=== PATIENT | male | born 1985 | race Asian ===

== ENCOUNTER 2019-01-28 13:29 | Emergency (ER) | payer MEDICAID ==
[~2019-01-28] VITALS: Ht 167.6 cm; Wt 89.1 kg
[~2019-01-28 13:29] MED LIST: DIPH25CA83 PO; HYDR1TAB PO; NO HOME MEDS; PANT-47 PO; POLY119P2 PO
[2019-01-28 13:40] VITALS: BP 149/98
[2019-01-28] MEDS ORDERED: ORPH100T2 PO (14:14)
[2019-01-28] MEDS ORDERED: orphenadrine citrate 60mg/2ml inj. IM ONE (14:15)
== END 2019-01-28 15:00 | disposition home or self-care (01) ==
LOC: ER 13:29
DX: M54.2 Cervicalgia (principal); M25.511 Pain in right shoulder; M25.512 Pain in left shoulder; F17.200 Nicotine dependence, unspecified, uncomplicated; Z90.49 Acquired absence of other specified parts of digestive tract; Z98.890 Other specified postprocedural states; Z56.0 Unemployment, unspecified; Z79.899 Other long term (current) drug therapy
CPT/HCPCS: 96372; 99283; J2360

== ENCOUNTER 2021-04-22 02:06 | Emergency (ER) | payer MEDICAID ==
[~2021-04-22] VITALS: Ht 167.6 cm; Wt 92.0 kg
[~2021-04-22 02:06] MED LIST changes: +ORPH100T2 PO
[2021-04-22] MEDS ORDERED: normal saline 1000ml 1,000 ML IV ONE (02:15)
[2021-04-22] MEDS ORDERED: pantoprazole 40 MG vial IV ONE (02:50)
[2021-04-22] MEDS ORDERED: LIDOcaine Viscous 15ml cup MM ONE (02:50)
[2021-04-22] MEDS ORDERED: mag hydrox/Alum hydrox/simeth 30ml oral suspension PO ONE (02:50)
[2021-04-22] MEDS ORDERED: famotidine/PF 10 mg/ml inj IV ONE ×2 (02:50→03:35)
[2021-04-22 02:53] LABS: BASOPHILS % (AUTO) 0.5 % (0-1); EOSINOPHILS # (AUTO) 0.3 X10'3 (0-0.9); EOSINOPHILS % (AUTO) 4.1 % (0-6); HEMATOCRIT 50.2 % (42.0-52.0); HEMOGLOBIN 17.4 g/dl (14.0-17.9); LYMPHOCYTES # (AUTO) 2.3 X10'3 (1.1-4.8); LYMPHOCYTES % (AUTO) 30.4 % (21-51); MEAN CORPUSCULAR HEMOGLOBIN 33.2 PG (27.0-31.0); MEAN CORPUSCULAR HGB CONC 34.6 g/dL (33.0-36.5); MEAN PLATELET VOLUME 8.7 FL (7.4-10.4); MONOCYTES # (AUTO) 0.8 X10'3 (0-0.9); MONOCYTES % (AUTO) 11.1 % (2-12); NEUTROPHILS # (AUTO) 4.1 X10'3 (1.8-7.7); NEUTROPHILS % (AUTO) 53.9 % (42-75); PLATELET COUNT 193 X10'3 (140-440); RED BLOOD COUNT 5.23 X10'6 (4.70-6.10); RED CELL DISTRIBUTION WIDTH 13.4 % (11.5-14.5); WHITE BLOOD COUNT 7.5 X10'3 (4.5-11.0)
[2021-04-22 03:07] LABS: ALANINE AMINOTRANSFERASE 44 U/L (12-78); ALBUMIN 3.6 G/DL (3.4-5.0); ALBUMIN/GLOBULIN RATIO 0.9 (1.1-1.5); ALKALINE PHOSPHATASE 90 IU/L (46-116); ANION GAP 13 (8-16); ASPARTATE AMINO TRANSFERASE 16 U/L (10-37); BILIRUBIN,TOTAL 0.4 MG/DL (0.1-1.0); BLOOD UREA NITROGEN 15 MG/DL (7-18); BUN/CREATININE RATIO 15.6 (5.4-32.0); CALCIUM 8.1 MG/DL (8.5-10.1); CHLORIDE 105 MMOL/L (99-107); CREATININE 0.96 MG/DL (0.60-1.10); GLUCOSE 111 MG/DL (70-104); POTASSIUM 3.9 MMOL/L (3.5-5.1); SODIUM 144 MMOL/L (135-145); TOTAL CARBON DIOXIDE 26.5 MMOL/L (24-32); TOTAL PROTEIN 7.6 G/DL (6.4-8.2); eGFR 88 ML/MIN
[2021-04-22 03:11] LABS: D-DIMER < 0.19 MG/L FEU (0-0.50)
[2021-04-22 03:16] LABS: MAGNESIUM 2.1 MG/DL (1.5-2.4)
[2021-04-22 03:22] LABS: C-REACTIVE PROTEIN < 0.05 MG/DL (0.0-0.5)
[2021-04-22] MEDS ORDERED: PANT-47 PO (03:56)
[2021-04-22 04:05] VITALS: BP 149/110
== END 2021-04-22 04:06 | disposition home or self-care (01) ==
LOC: ER 02:07
DX: R07.89 Other chest pain (principal); R06.02 Shortness of breath; R10.13 Epigastric pain; Z90.89 Acquired absence of other organs; Z98.890 Other specified postprocedural states; Z56.0 Unemployment, unspecified; Z72.89 Other problems related to lifestyle; Z79.899 Other long term (current) drug therapy
CPT/HCPCS: 36415; 71045; 80053; 83735; 83880; 84484; 85025; 85379; 85610; 86140; 93005; 96374; 96375; 99285; C9113; J3490

== ENCOUNTER 2021-08-26 14:49 | Emergency (ER) | payer MEDICAID ==
[~2021-08-26] VITALS: Ht 167.6 cm; Wt 91.8 kg
[2021-08-26] MEDS ORDERED: normal saline 1000ML IV soln IVB ONE (15:05)
[2021-08-26] MEDS ORDERED: famotidine/PF 10 mg/ml inj IV ONE (15:05)
[2021-08-26] MEDS ORDERED: methylPREDNISolone sod succ 125mg/2ml vial IV ONE (15:05)
[2021-08-26] MEDS ORDERED: diphenhydrAMINE 50 mg/ml inj IV ONE (15:05)
[2021-08-26 17:21] VITALS: BP 139/103
== END 2021-08-26 17:25 | disposition home or self-care (01) ==
LOC: ER 14:49
DX: T78.1XXA Other adverse food reactions, not elsewhere classified, initial encounter (principal); Z90.89 Acquired absence of other organs; Z98.890 Other specified postprocedural states; Z72.89 Other problems related to lifestyle; Z56.0 Unemployment, unspecified; Z79.899 Other long term (current) drug therapy; X58.XXXA Exposure to other specified factors, initial encounter
CPT/HCPCS: 96361; 96374; 96375; 99284; J1200; J2930; J3490; J7030

== ENCOUNTER 2022-03-29 17:29 | Emergency (ER) | payer MEDICAID ==
[~2022-03-29] VITALS: Ht 167.6 cm; Wt 91.8 kg
[2022-03-29 17:47] VITALS: BP 174/109
[2022-03-30] MEDS ORDERED: PRED20TA PO (11:26)
== END 2022-03-29 19:30 | disposition left against medical advice (07) ==
LOC: ER 17:29
DX: R21 Rash and other nonspecific skin eruption (principal); Z53.21 Procedure and treatment not carried out due to patient leaving prior to being seen by health care provider

== ENCOUNTER 2022-03-30 09:30 | Emergency (ER) | payer MEDICAID ==
[~2022-03-30] VITALS: Ht 167.6 cm; Wt 92.0 kg
[2022-03-30 09:41] VITALS: BP 137/99
[2022-03-30] MEDS ORDERED: predniSONE 20 mg tablet PO ONE (11:20)
[2022-03-30] MEDS ORDERED: diphenhydrAMINE 25mg capsule PO ONE (11:20)
[2022-03-30] MEDS ORDERED: PRED20TA PO (11:26)
== END 2022-03-30 11:44 | disposition home or self-care (01) ==
LOC: ER 09:31
DX: L23.9 Allergic contact dermatitis, unspecified cause (principal); Z98.890 Other specified postprocedural states; Z56.0 Unemployment, unspecified
CPT/HCPCS: 99283; J7512; Q0163

== ENCOUNTER 2022-11-19 22:26 | Emergency (ER) | payer MEDICAID ==
[~2022-11-19] VITALS: Ht 167.6 cm; Wt 84.6 kg
[~2022-11-19 22:26] MED LIST changes: -ORPH100T2 PO; +ORPH100T4 PO
[2022-11-19 23:16] VITALS: BP 166/104
[2022-11-19] MEDS ORDERED: TRIA15OI9 TOP (23:24)
[2022-11-19] MEDS ORDERED: triamcinolone acetonide 40mg/ml inj IM ONE (23:25)
== END 2022-11-19 23:33 | disposition home or self-care (01) ==
LOC: ER 22:27
DX: L23.7 Allergic contact dermatitis due to plants, except food (principal); Z98.890 Other specified postprocedural states; Z56.0 Unemployment, unspecified
CPT/HCPCS: 96372; 99283; J3301

== ENCOUNTER 2024-07-18 02:17 | Emergency (ER) | payer MEDICAID ==
[~2024-07-18] VITALS: Ht 165.1 cm; Wt 95.2 kg
[~2024-07-18 02:17] MED LIST changes: +TRIA15OI9 TOP
[2024-07-18 02:21] VITALS: BP 176/112; PULSE 68; RESP 14; TEMP 97.4; O2SAT 97
== END 2024-07-18 03:51 | disposition left against medical advice (07) ==
LOC: ER 02:17
DX: R05.9 Cough, unspecified (principal); R42 Dizziness and giddiness; R06.02 Shortness of breath; I10 Essential (primary) hypertension; Z53.21 Procedure and treatment not carried out due to patient leaving prior to being seen by health care provider
CPT/HCPCS: 93005

== ENCOUNTER 2024-08-14 21:39 | Emergency (ER) | payer MEDICAID ==
[~2024-08-14] VITALS: Ht 167.6 cm; Wt 95.3 kg
[2024-08-14] MEDS: acetaminophen 1,000mg/100ml IV 100 ML IV ONE (23:39)
[2024-08-14] MEDS: ketorolac trometh 30MG/ML vial 30 MG/ML VIAL IV ONE (23:39)
[2024-08-14] MEDS: normal saline 1000ml 1,000 ML IV SCH (23:40)
[2024-08-15] MEDS: hydrALAZINE 20mg/ml inj. IV ONE (00:38)
[2024-08-15] MEDS: proCHLORperazine 10 MG/2 ml inj IV ONE (00:39)
[2024-08-15] MEDS: diphenhydrAMINE 50 mg/ml inj IV ONE (00:41)
[2024-08-15 01:17] VITALS: BP 134/91; PULSE 74; RESP 16; TEMP 98.2; O2SAT 96
== END 2024-08-15 01:26 | disposition home or self-care (01) ==
LOC: ER 21:40
DX: G43.909 Migraine, unspecified, not intractable, without status migrainosus (principal); I10 Essential (primary) hypertension; Z90.49 Acquired absence of other specified parts of digestive tract; Z98.890 Other specified postprocedural states
CPT/HCPCS: 96374; 96375; 99284; J0131; J0360; J0780; J1200; J1885; J7030

== ENCOUNTER 2025-01-14 05:51 | Emergency (ER) | payer MEDICAID ==
[~2025-01-14] VITALS: Ht 165.1 cm; Wt 89.5 kg
--- NOTE | 2025-01-14 06:12 | ELECTROCARDIOGRAPH REPORT ---
[facility] Test Date: 2025-01-14 Test Time: 06:05:40 Pat Name: KOKO CHERRY Department: EMERGENCY ROOM Room: Gender: M Drill Presser: CHON : 1985 Requested By: FRANK BADILLO Order Number: [id number] Reading MD: Dr. Frank Badillo Measurements Intervals [place] Rate: 67 P: 39 NE: 189 QRS: 65 QRSD: 103 T: 33 QT: 417 QTc: 441 Interpretive Statements Sinus arrhythmia ST elev, probable normal early repol pattern Electronically Signed On 01-14-2025 19:43:[address] Frank Badillo Please click the below link to view image of tracing.
--- NOTE | 2025-01-14 06:45 | RADIOLOGY REPORT ---
CHEST RADIOGRAPH Indication: CP Technique: Single frontal view of the chest was obtained Comparison: CHEST,SINGLE VIEW on DOS: 04/22/21 IMPRESSION: Heart appears normal in size. The lungs appear clear without focal airspace opacity, effusion, or pn eumothorax
[2025-01-14 07:21] LABS: MEAN PLATELET VOLUME 9.0 FL (7.4-10.4); RED CELL DISTRIBUTION WIDTH 13.4 % (11.5-14.5)
[2025-01-14 07:44] LABS: CREATININE 1.09 MG/DL (0.60-1.10); TOTAL CARBON DIOXIDE 25.6 MMOL/L (24-32); eCRCL 78 ML/MIN; eGFR 75 ML/MIN
[2025-01-14 07:50] LABS: PRO BRAIN NATRIURETIC PEPTIDE < 30 PG/ML (0-125)
--- NOTE | 2025-01-14 08:11 | Physician Documentation ---
History of Present Illness ~ Chief Complaint: Shortness of Breath Stated Complaint: CHEST PAIN Time Seen by MD: 08:05 Primary Medical Doctor: ZULEMA Medrano Source: patient (12) Mode of Arrival: Ambulatory HPI Patient comes in for evaluation of chest pain. He shows me the area of the upper epigastrium, says that he had pain for about three days starting , although he is pain-free currently. The pain was described as burning, associated with a feeling of weakness. The pain was not worse with any exercise or any food intake, but is worse with the heat. Patient has no associated dysuria, stool changes, melena. He has not taken anything for his symptoms. Of note, patient has a prior history of acid reflux, has not been on any medications for some time. Medication Reconciliation Allergies: Coded Allergies: No Known Allergies (Unverified , 03/18/13) Scheduled Orphenadrine Citrate (Norflex), 1 TAB PO Q12H PRN Pantoprazole Sodium (PROTONIX tablet), 1 TAB PO DAILY Pantoprazole Sodium (PROTONIX tablet), 1 TAB PO DAILY Polyethylene Glycol 3350 (Miralax), 1 SCOOP PO DAILY Scheduled PRN Diphenhydramine Hcl (Benadryl), 1 CAP PO TID PRN PRN for allergies Hydrocodone/Acetaminophen (Vicodin 5-500 Tablet), 1 TAB PO Q6H PRN for pain Triamcinolone Acetonide (Triamcinolone Acetonide), 1 APPLIC TOP TID PRN PRN for rash Miscellaneous Medications Home Med List (No Home Medications), (Reported) Past Medical History Past Medical History: Hypertension, GERD Past Surgical History: appendectomy, orthopedic surgeries Smoking Status: Current every day smoker Alcohol Use: Occasionally Drug Use: none Occupation: unemployed Review of Systems All Other Systems at this time: Reviewed and Negative Physical Exam Vital Signs: Temperature: 97.4, Source: Temporal, Heart Rate: 71, Respiratory Rate: 18, BP: 161/109, Pulse Oximetry: 98, Weight: 89.450 Oxygen Flow Rate: 0 Physical Exam General: Pt is awake, alert, oriented x4 in no acute distress and well appearing. Head: Normocephalic and atraumatic. Eyes: Conjunctiva normal. ENT: Mucous membranes moist. Neck: Supple. Chest: Clear to auscultation bilaterally, without rales, rhonchi, or wheezes. There is no accessory muscle use or retractions. Cardiac: Regular rate and rhythm without murmurs, gallops or rubs. Palpation of the chest wall is normal. Abd: Soft, nondistended, tender over the epigastrium, with normoactive bowel sounds. No guarding or rebound. Extremities: Within normal limits without cyanosis, clubbing, or edema. Skin: [place], warm and dry with no significant rash appreciated. Neuro: Cranial nerves II-XII grossly intact. The gait is normal. Progress Results/Orders Results/Orders Completed Orders - FINA ANAND MD Pantoprazole 40mg Iv (Protonix 40mg Iv) (01/14/25 08:35) Medications Received in ER Medications (Trade) Dose Ordered Sig/Ori Route PRN Reason Start Time Stop Time Status Last Admin Dose Admin (Protonix 40mg IV) 40 mg ONCE ONCE IV 01/14/25 08:35 01/14/25 08:36 DC 01/14/25 08:56 40 MG Vital Signs 01/14/25 01/14/25 01/14/25 01/14/25 06:03 07:55 07:57 08:32 Temp 97.4 Pulse 60 71 52 Resp 20 18 18 B/P (MAP) 137/91 161/109 (126) 140/93 (109) Pulse Ox 98 98 99 O2 Flow Rate 0 0 0 Laboratory Tests Test 01/14/25 07:05 01/14/25 08:05 01/14/25 08:56 White Blood Count 5.8 Red Blood Count 4.91 Hemoglobin 15.9 Hematocrit 46.7 Mean Corpuscular Volume 95.1 Mean Corpuscular Hemoglobin 32.4 H Mean Corpuscular Hemoglobin Concent 34.0 Red Cell Distribution Width 13.4 Platelet Count 167 Mean Platelet Volume 9.0 Neutrophils (%) (Auto) 55.5 Lymphocytes (%) (Auto) 28.2 Monocytes (%) (Auto) 9.6 Eosinophils (%) (Auto) 6.3 H Basophils (%) (Auto) 0.4 Neutrophils # (Auto) 3.2 Lymphocytes # (Auto) 1.6 Monocytes # (Auto) 0.6 Eosinophils # (Auto) 0.4 Basophils # (Auto) 0.0 CBC Comment Sodium Level 138 Potassium Level 4.3 Chloride Level 105 Carbon Dioxide Level 25.6 Anion Gap 7 L Blood Urea Nitrogen 20 H Creatinine 1.09 Estimated GFR/1.73 m2 75 BUN/Creatinine Ratio 18.3 Glucose Level 116 H Calcium Level 8.6 Troponin I High Sensitivity 55 51 Pro-B-Type Natriuretic Peptide < 30 Albumin 3.4 Chemistry Comments Troponin I High Sens Percent Delta 7 Troponin I Hi Sens Absolute Change -4 EKG/XRAY/CT/US/VASC/MRI EKG : Intepreting Monitor?: No Indication: shortness of breath EKG Rate: 67 EKG: NSR Additional Comment Early repolarization pattern Medical Decision Making Additional Infomation Patient here to be evaluated for chest pain, but indicating his epigastrium, and indeed has significant epigastric tenderness on examination with a prior history of reflux. Although the patient has a history of hypertension and s moking, there is no evidence for cardiac ischemia on EKG or on serial troponin testing. Patient is asymptomatic at this time as far as chest pain goes. Symptoms are most consistent with a gastroesophageal etiology, gastritis versus GERD versus peptic ulcer disease. Patient will be started back on a proton pump inhibitor and is advised to follow up with his primary care doctor for re- evaluation and for possible referral to GI if endoscopy is needed. He can also be evaluated for cardiac workup at the same time. Patient understands to return to the emergency department for any worsening of his condition. HEART score =1 Departure Time of Disposition: 09:17 Disposition: 01 HOME / SELF CARE / HOMELESS Impression: Primary Impression: Chest pain Qualified Codes: R07.89 - Other chest pain Condition: Stable Discharge Instructions: Gastritis, Adult Additional Instructions: Follow-up closely with your doctor for recheck and possible referral to the supply crib attendant in case you need an endoscopy to confirm diagnosis. Start the medications and takes them as directed. Avoid tobacco, as it can significantly worsen stomach symptoms. Return immediately if you are vomiting, passing blood, have worsening chest pain, or any other concerns. Referrals: NO PRIMARY CARE PROVIDER (PCP) Prescriptions Pantoprazole Sodium (PROTONIX tablet) 40 Mg Tablet.dr 1 TAB PO DAILY for 30 Days, #30 TAB 0 Refills Prov: FINA ANAND MD 01/14/25 Education Educated: Patient Educated regarding: diagnosis, treatment Signature Scribe Signature: Attestation: FINA ANAND MD Jan 14, 2025 08:11
[2025-01-14] MEDS ORDERED: PANT-47 PO (09:19)
[2025-01-14 09:47] VITALS: BP 117/81; PULSE 67; RESP 16; TEMP 97.4; O2SAT 98
== END 2025-01-14 09:45 | disposition home or self-care (01) ==
LOC: ER 05:52
DX: R07.89 Other chest pain (principal); I10 Essential (primary) hypertension; K21.9 Gastro-esophageal reflux disease without esophagitis; F17.200 Nicotine dependence, unspecified, uncomplicated; I49.8 Other specified cardiac arrhythmias; Z90.49 Acquired absence of other specified parts of digestive tract; Z79.899 Other long term (current) drug therapy; Z56.0 Unemployment, unspecified; Z72.89 Other problems related to lifestyle
CPT/HCPCS: 36415; 71045; 80048; 83880; 84484; 85025; 93005; 96374; 99285; J2470; J7030

== ENCOUNTER 2025-05-28 09:47 | Emergency (ER) | payer MEDICAID ==
[~2025-05-28] VITALS: Ht 167.6 cm; Wt 84.4 kg
--- NOTE | 2025-05-28 09:55 | ELECTROCARDIOGRAPH REPORT ---
[facility] Test Date: 2025-05-28 Test Time: 09:53:59 Pat Name: KOKO CHERRY Department: EMERGENCY ROOM Room: Gender: M Printer Helper: AGAPITO : 1985 Requested By: RADHA NICHOLS Order Number: [id number] Reading MD: Measurements Intervals [place] Rate: 70 P: 41 [place]: 163 QRS: 122 QRSD: 102 T: 20 QT: 395 QTc: 427 Interpretive Statements Sinus rhythm Right axis deviation ST elevation suggests acute pericarditis Baseline wander in lead(s) V1,V2 Please click the below link to view image of tracing.
--- NOTE | 2025-05-28 10:19 | RADIOLOGY REPORT ---
CHEST RADIOGRAPH INDICATION: CP TECHNIQUE: Single frontal view of the chest was obtained COMPARISON: DI CHEST,SINGLE VIEW on DOS: 01/14/25, CHEST,SINGLE VIEW on DOS: 04/22/21 FINDINGS: Lines and Tubes: None Lungs: Clear Pleura: No effusion. No pneumothorax. Cardiomediastinal contours: Unremarkable Bones: Unremarkable IMPRESSION: No acute disease.
[2025-05-28 10:31] LABS: MEAN PLATELET VOLUME 9.3 FL (7.4-10.4); RED CELL DISTRIBUTION WIDTH 13.5 % (11.5-14.5)
[2025-05-28 10:49] LABS: CREATININE 0.84 MG/DL (0.60-1.10); TOTAL CARBON DIOXIDE 30.3 MMOL/L (24-32); eCRCL 104 ML/MIN; eGFR > 90 ML/MIN
[2025-05-28 12:28] LABS: PRO BRAIN NATRIURETIC PEPTIDE < 30 PG/ML (0-125)
[2025-05-28] MEDS: aspirin 325mg tablet, delayed-release (Ecotrin) PO ONE (13:11)
--- NOTE | 2025-05-28 13:11 | Physician Documentation ---
History of Present Illness ~ Chief Complaint: Chest Pain Stated Complaint: CHEST PAIN SINCE WEDNESDAY Time Seen by MD: 12:18 Primary Medical Doctor: ZULEMA Medrano Mode of Arrival: POV, Ambulatory HPI 39-year-old male presenting with chest pain that has been ongoing for the past four days. He states that he initially woke up in the morning four days ago and had a pain in his substernal area which did not radiate. The pain waxed and waned but continued throughout the day. He states that it has continued since. There is no relation to any activity. No relation to food intake. States that he gets slightly short of breath when he gets the pain. Pain is about moderate in intensity. He reports some very slight nausea but no episodes of vomiting. Denies any fever, chills or any other associated symptoms. Medication Reconciliation Allergies: Coded Allergies: No Known Allergies (Unverified , 03/18/13) Scheduled Orphenadrine Citrate (Norflex), 1 TAB PO Q12H PRN Pantoprazole Sodium (PROTONIX tablet), 1 TAB PO DAILY Pantoprazole Sodium (PROTONIX tablet), 1 TAB PO DAILY Pantoprazole Sodium (PROTONIX tablet), 1 TAB PO DAILY Polyethylene Glycol 3350 (Miralax), 1 SCOOP PO DAILY Scheduled PRN Diphenhydramine Hcl (Benadryl), 1 CAP PO TID PRN PRN for allergies Hydrocodone/Acetaminophen (Vicodin 5-500 Tablet), 1 TAB PO Q6H PRN for pain Triamcinolone Acetonide (Triamcinolone Acetonide), 1 APPLIC TOP TID PRN PRN for rash Miscellaneous Medications Home Med List (No Home Medications), (Reported) Past Medical History Past Medical History: Hypertension, GERD Past Surgical History: appendectomy, orthopedic surgeries Alcohol Use: Occasionally Drug Use: none Occupation: unemployed Physical Exam Vital Signs: Temperature: 97.6, Source: Temporal, Heart Rate: 60, Respiratory Rate: 22, BP: 134/85, Pulse Oximetry: 99, Weight: 84.400 Oxygen Flow Rate: 0 Physical Exam I have reviewed the triage vitals. CONST: Well developed and well nourished. In no acute distress HENT: Head Atraumatic EYES: Pupils are equal, round and reactive to light. Normal conjunctiva NECK: Normal range of motion. Supple. CARDIO: Normal rate and regular rhythm. No murmurs, rubs, or gallops. S1, S2. PULM/CHEST: No respiratory distress. Lungs clear to auscultation. No wheeze ABD: Soft and nontender. Nondistended. Bowel sounds normal. No guarding. : Exam deferred MSK: No edema. No deformity. NEURO: Alert and oriented to person, place and time. Moving all extremities SKIN: Warm and dry. PSYCH: Normal mood and affect. Good eye contact. Progress Results/Orders Results/Orders Orders - RADHA NICHOLS MD Chest,Single View (05/28/25 09:53) Monitor (05/28/25 09:53) Saline Lock (05/28/25 09:53) Oxygen (05/28/25 09:53) Completed Orders - RADHA NICHOLS MD Chest,Single View (05/28/25 09:53) Cbc/Diff (05/28/25 09:53) PBNP (05/28/25 09:53) Electrocardiogram (05/28/25 09:53) Hs Troponin I W Calculations (05/28/25 09:53) Hs Troponin I W Calculations (05/28/25 11:53) Hs Troponin I W Calculations (05/28/25 12:53) CMP (05/28/25 09:53) Lipase (05/28/25 09:53) Aspirin 325mg Enteric-Coated (Ecotrin 32 (05/28/25 12:50) Nitroglycerin Sublingual Tab (Nitrostat (05/28/25 12:50) Medications Received in ER Medications (Trade) Dose Ordered Sig/Ori Route PRN Reason Start Time Stop Time Status Last Admin Dose Admin (Ecotrin 325MG tablet) 1 tab ONCE ONCE PO 05/28/25 12:50 05/28/25 12:54 DC 05/28/25 13:11 1 TAB (Nitrostat SL tablet) 0.4 mg ONCE ONCE SL 05/28/25 12:50 05/28/25 12:54 DC 05/28/25 13:11 0.4 MG Vital Signs 05/28/25 05/28/25 05/28/25 05/28/25 10:15 12:15 12:31 14:31 Temp 97.6 Pulse 75 60 58 Resp 18 15 22 26 B/P (MAP) 142/97 134/85 (101) 131/91 (104) Pulse Ox 99 99 99 O2 Flow Rate 0 Laboratory Tests Test 05/28/25 09:58 05/28/25 12:00 05/28/25 12:37 White Blood Count 5.3 Red Blood Count 5.33 Hemoglobin 17.2 Hematocrit 50.9 Mean Corpuscular Volume 95.5 Mean Corpuscular Hemoglobin 32.3 H Mean Corpuscular Hemoglobin Concent 33.9 Red Cell Distribution Width 13.5 Platelet Count 172 Mean Platelet Volume 9.3 Neutrophils (%) (Auto) 53.7 Lymphocytes (%) (Auto) 31.0 Monocytes (%) (Auto) 9.1 Eosinophils (%) (Auto) 5.5 Basophils (%) (Auto) 0.7 Neutrophils # (Auto) 2.8 Lymphocytes # (Auto) 1.6 Monocytes # (Auto) 0.5 Eosinophils # (Auto) 0.3 Basophils # (Auto) 0.0 CBC Comment Sodium Level 140 Potassium Level 3.8 Chloride Level 107 Carbon Dioxide Level 30.3 Anion Gap 3 L Blood Urea Nitrogen 14 Creatinine 0.84 Estimated GFR/1.73 m2 > 90 BUN/Creatinine Ratio 16.7 Glucose Level 105 H Calcium Level 8.9 Total Bilirubin 0.3 Aspartate Amino Transf (AST/SGOT) 20 Alanine Aminotransferase (ALT/SGPT) 23 Alkaline Phosphatase 86 Troponin I High Sensitivity 42 42 42 Pro-B-Type Natriuretic Peptide < 30 Total Protein 7.6 Albumin 3.7 Globulin 3.9 Albumin/Globulin Ratio 0.9 L Lipase 27 Chemistry Comments Troponin I High Sens Percent Delta 0 0 Troponin I Hi Sens Absolute Change 0 0 EKG/XRAY/CT/US/VASC/MRI EKG : Additional Comment EKG as interpreted by ED MD indicating normal sinus rhythm with a rate of 70 beats per minute, no ischemia, normal axis Heart Score: Heart Score Response (Comments) Value History Slightly Suspicious 0 EKG Repolarization Disturb 1 Age <45 0 Risk Factors No known risk factors 0 Troponin Normal limit 0 Total 1 Departure Disposition: 01 HOME / SELF CARE / HOMELESS Impression: Primary Impression: Chest pain Discharge Instructions: Nonspecific Chest Pain, Adult Additional Instructions: Monitor symptoms closely. Please follow up with primary care physician and get a referral for a stress test through a human resources advisor. Please return to the ED promptly with any acutely worsening symptoms. Referrals: NO PRIMARY CARE PROVIDER (PCP) RADHA NICHOLS MD May 28, 2025 13:11
[2025-05-28 15:33] VITALS: BP 130/80; PULSE 60; RESP 16; TEMP 98; O2SAT 99
== END 2025-05-28 15:34 | disposition home or self-care (01) ==
LOC: ER 09:47
DX: R07.9 Chest pain, unspecified (principal); I10 Essential (primary) hypertension; K21.9 Gastro-esophageal reflux disease without esophagitis; Z90.49 Acquired absence of other specified parts of digestive tract; Z79.899 Other long term (current) drug therapy; Z56.0 Unemployment, unspecified; Z72.89 Other problems related to lifestyle; Z98.890 Other specified postprocedural states
CPT/HCPCS: 36415; 71045; 80053; 83690; 83880; 84484; 85025; 93005; 99285